=== PATIENT | female | born 1975 | race Caucasian/White ===

== ENCOUNTER → 2018-02-24 | Outpatient (CLI) | payer OTHER ==
[~2018-02-24] MED LIST: GADOBUTROL 10 MMOL/10 ML PFS ONE; MULT-658 PO; NALT50TA PO; OMEG1CAP6 PO
== END | disposition home or self-care (01) ==
LOC: CFH 15:21
PROVIDERS: ATTEND Psychiatry & Neurology Neurology
DX: G35 Multiple sclerosis (principal); Z87.891 Personal history of nicotine dependence
CPT/HCPCS: 70553; A9585